=== PATIENT | female | born 1980 | race Caucasian/White ===

== ENCOUNTER → 2017-02-16 | Outpatient (CLI) | payer OTHER ==
[~2017-02-16] MED LIST: ACETAMINOPHEN325 MG PO; APNO TOP; LANSINOH7 GM TOP; MOTRIN800 MG PO; PERCOCET 5-3251 EACH PO; PRENATAL 1+1)(P1 TAB PO; SURFAK240 MG PO
== END | disposition disaster alternative care site (69) ==
LOC: GRAD 13:17
DX: R59.1 Generalized enlarged lymph nodes (principal); Z98.890 Other specified postprocedural states
CPT/HCPCS: Q9967

== ENCOUNTER → 2017-03-15 | Outpatient (CLI) | payer OTHER ==
[2017-03-15 14:08] LABS: HEMATOCRIT 42.6 % (33.0-46.0); HEMOGLOBIN 15.3 g/dL (11.0-15.0); MCH 31.4 pg (27.0-34.0); MCHC 35.9 gm/dL (32.0-36.5); MCV 87.3 fl (83.0-98.0); MPV 9.6 fl (9.4-12.4); RDW-CV 12.9 % (11.9-14.6); WBC 9.9 K/uL (4.0-11.0)
[2017-03-15 14:09] LABS: RBC 4.88 M/uL (3.50-5.50)
[2017-03-15 14:23] LABS: INR - (THERAPEUTIC) 0.94 (0.92-1.07); PROTIME 9.9 SECONDS (9.8-11.4)
== END | disposition disaster alternative care site (69) ==
LOC: GOPD 03-11 → GOPP 06-08 → GOPD 06-08 → GRAD 06-08 → GPOC 06-08
PROVIDERS: Otolaryngology
PROC: 0HB4XZX Excision of Neck Skin, External Approach, Diagnostic (ICD-10-PCS; principal; 2017-03-15)
DX: R22.1 Localized swelling, mass and lump, neck (principal)